=== PATIENT | female | born 1980 | race Caucasian/White ===

== ENCOUNTER 2019-11-16 16:54 | Outpatient (CLI) | payer OTHER, SELFPAY ==
--- NOTE | ~2019-11-16 | MM_ITS ---
EXAMINATION: MM screening javier BI w margoth HISTORY: Screening mammogram TECHNIQUE: Craniocaudal and mediolateral oblique 3-D tomosynthesis images were obtained and synthetic 2-D images were generated. CAD analysis was submitted and interpreted. COMPARISON: No prior mammogram is available for comparison at this institution. BREAST PARENCHYMAL COMPOSITION: There are scattered areas of fibroglandular density. FINDINGS: There is no evidence of suspicious mass, calcification, or architectural distortion to sugg est malignancy in either breast. There has been no suspicious interval change. IMPRESSION: 1. No mammographic evidence of malignancy. 2. Recommend routine screening mammography in one year. BI-RADS Category 1: Negative Reviewed, dictated and finalized at location A.
== END 2019-11-16 16:55 | disposition home or self-care (01) ==
LOC: ANHIMG 16:59
PROVIDERS: PCP Family Medicine
DX: Z12.31 Encounter for screening mammogram for malignant neoplasm of breast (principal)
CPT/HCPCS: 77063; 77067

== ENCOUNTER 2021-02-20 17:44 | Outpatient (CLI) | payer OTHER, SELFPAY ==
--- NOTE | ~2021-02-20 | MM_ITS ---
EXAMINATION: MM screening javier BI w margoth HISTORY: Screening mammogram TECHNIQUE: Craniocaudal and mediolateral oblique 3-D tomosynthesis images were obtained and synthetic 2-D images were generated. CAD analysis was submitted and interpreted. COMPARISON: 11/16/2019 bilateral digital screening mammogram BREAST PARENCHYMAL COMPOSITION: There are scattered areas of fibroglandular density. FINDINGS: There is no evidence of suspicious mass, calcification, or architectural distortion to sugg est malignancy in either breast. There has been no suspicious interval change. IMPRESSION: 1. No mammographic evidence of malignancy. 2. Recommend routine screening mammography in one year. BI-RADS Category 1: Negative Reviewed, dictated and finalized at location A.
== END 2021-02-20 17:45 | disposition home or self-care (01) ==
PROVIDERS: PCP Internal Medicine; Visit Provider Internal Medicine
DX: Z12.31 Encounter for screening mammogram for malignant neoplasm of breast (principal)
CPT/HCPCS: 77063; 77067

== ENCOUNTER → 2021-04-28 01:07 | Outpatient (CLI) | payer OTHER, SELFPAY ==
[2021-04-28 22:46] LABS: SARS-CoV-2 RNA PCR Negative
== END ==
PROVIDERS: PCP Internal Medicine; Visit Provider Clinical Nurse Specialist
DX: R68.89 Other general symptoms and signs (principal); Z20.822 Contact with and (suspected) exposure to COVID-19
CPT/HCPCS: C9803; U0003; U0005

== ENCOUNTER 2021-07-18 14:22 | Outpatient (CLI) | payer OTHER, SELFPAY ==
--- NOTE | ~2021-07-18 | XR_ITS ---
XR lumbar spine 2-3V DATE: 07/18/2021 14:49 INDICATION: Back pain TECHNIQUE: AP, lateral, coned lateral lumbosacral views COMPARISON: None FINDINGS: No fracture or bone destruction is evident. The included lower thoracic and lumbar pedicles are intact. Lumbar levels interspaces are well preserved. The sacroiliac joints are intact. IMPRESSION: Negative Reviewed, dictated and finalized at location A. CAPPER IMPRESSION: Negative
== END 2021-07-18 14:23 | disposition home or self-care (01) ==
LOC: ANHIMG 14:25
PROVIDERS: PCP Internal Medicine; Visit Provider Clinical Nurse Specialist
DX: M54.9 Dorsalgia, unspecified (principal)
CPT/HCPCS: 72100

== ENCOUNTER 2023-10-01 15:45 | Outpatient (CLI) | payer BC, SELFPAY ==
--- NOTE | ~2023-10-01 | MM_ITS ---
EXAMINATION: MM screening javier BI w margoth HISTORY: Screening mammogram, family history of breast cancer in her mother. TECHNIQUE: Craniocaudal and mediolateral oblique 3-D tomosynthesis images were obtained and synthetic 2-D images were generated. CAD analysis was submitted and interpreted. COMPARISON: 02/20/2021, 11/16/2019 BREAST PARENCHYMAL COMPOSITION:Not Dense. There are scattered areas of fibroglandular density. FINDINGS: No suspicious mass, calcification, or architectural distortion are identified in either river ast to suggest malignancy. There has been no suspicious interval change. IMPRESSION: No mammographic evidence of malignancy. Recommend routine screening mammography in one year. BI-RADS Category 1: Negative Reviewed, dictated and finalized at location . 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
== END 2023-10-01 15:46 | disposition home or self-care (01) ==
LOC: ANHIMG 15:50
PROVIDERS: PCP Internal Medicine
DX: Z12.31 Encounter for screening mammogram for malignant neoplasm of breast (principal)
CPT/HCPCS: 77063; 77067

== ENCOUNTER 2024-05-07 20:52 | Emergency (ER) | payer BC, SELFPAY ==
--- NOTE | ~2024-05-07 | CT_ITS ---
EXAMINATION: CT brain wo con DATE: 05/08/2024 02:51 INDICATION: Headache. TECHNIQUE: Computed tomography (CT) of the head was performed without intravenous contrast. The mA wa s adjusted according to patient size. Iterative reconstruction technique was employed. The dose-lengt h product was 605.33 mGy-cm. COMPARISON: Head CT 04/29/2009 FINDINGS: There is no intracranial hemorrhage, acute infarction, or abnormal intracranial mass lesion . The ventricles are normal in size. There is mucosal thickening in the paranasal sinuses. The mastoi d air cells are normal. IMPRESSION: 1. Normal brain. Reviewed, dictated and finalized at location A. IMPRESSION: 1. Normal brain.
[2024-05-07 21:14] VITALS: BP 117/80; PULSE 71; TEMP 36.6; O2SAT 99
[2024-05-08] MEDS: SODIUM CHLORIDE 0.9% IV 1,000 ML 999 ML IV CONT (02:01)
[2024-05-08] MEDS: ONDANSETRON INJ 4 MG/2 ML VIAL IV PUSH (02:02)
[2024-05-08] MEDS: diphenhydrAMINE HCl INJ 50 MG/ML VIAL 25 MG IV PUSH (02:03)
[2024-05-08] MEDS: METOCLOPRAMIDE HCL INJ 10 MG/2 ML VIAL IV PUSH (02:04)
[2024-05-08 02:06] VITALS: BP 118/81; PULSE 87; RESP 14; O2SAT 100
--- NOTE | 2024-05-08 02:56 | ED.HA ---
HPI - Headache General Chief Complaint: Headache Stated Complaint: migraine x 3 days, n/v Time Seen by Provider: 05/08/24 00:52 Source: patient Mode of arrival: ambulatory Limitations: no limitations History of Present Illness HPI Narrative: Patient is a 44-year-old female who presents to the ER with complaints of a headache that has been going on for the past three days. She reports this is the worst headache she has ever experienced in her life. Patient endorses nausea but she has not vomited since earlier in the day. She reports she has tried to relieve her headache with Ibuprofen, but it has not helped. Patient denies any pertinent medical history. She denies any one-sided weakness tingling or numbness, chest pain or shortness of breath. Related Data Home Medications Medication Instructions Recorded Confirmed loratadine 10 mg tablet (Claritin) 10 mg PO DAILY PRN 11/13/20 12/09/23 multivitamin with minerals 2 tablet PO DAILY 11/13/20 12/09/23 (Hair,Skin and Nails tablet) citalopram 10 mg tablet 15 mg PO DAILY 12/09/23 12/09/23 norethindrone 1 mg-ethinyl 1 tablet PO DAILY 12/09/23 12/09/23 estradiol 10 mcg (24)-iron 10 mcg(2) tablet (Lo Loestrin Fe) Allergies Allergy/AdvReac Type Severity Reaction Status Date / Time No Known Allergies Allergy Mild Verified 11/15/19 10:28 Review of Systems Review of Systems: All systems reviewed & are unremarkable except as noted in HPI and below PMFSH Past Medical History Medical History Allergies Anxiety Low back pain SVT (supraventricular tachycardia) Visual disturbance Surgical History Surgical History H/O section X2 Family History Family History Grandparent Family history of coronary artery disease Mother Family history of malignant neoplasm of breast in first degree relative Heart disease Father Hypertension Sibling Depression Anxiety Social History Social History Smoking status: Never smoker Alcohol intake: current Do You Feel Safe in your Home?: Yes Lack of Transportation: No Lack of Food: Never True Current Housing: I Have Housing Concerned About Future Housing: No Difficulty Paying Gas/Electric Bills: No Difficulty Paying for Meds: No Currently Unemployed: No Education: Associate Degree Difficulty w/ Childcare or Family Care: No Exam Narrative: GENERAL: Ill-appearing, well-nourished, non-toxic, in no acute distress. HEAD: Normocephalic, atraumatic. PERRLA RESPIRATORY: Airway patent, respirations nonlabored. Clear to auscultation bilaterally, no rales, rhonchi, wheezing. CARDIOVASCULAR: Regular rate and rhythm without murmurs, rubs, or gallops. Peripheral pulses 2+ and equal bilaterally. MUSCULOSKELETAL: Moves all extremities. Strength/ROM intact without gross deformities. SKIN: Warm, dry, normal color. No rashes. NEURO: A&O X3. Speech clear. Cranial nerves II-XII grossly intact. PSYCHIATRIC: Appropriate mood and affect. Normal interaction. Course Vital Signs Vital signs: Vital Signs Temperature 36.6 C 05/07/24 21:14 Pulse Rate 71 05/07/24 21:14 Blood Pressure 117/80 05/07/24 21:14 Pulse Oximetry 99 05/07/24 21:14 Temperature 36.6 C 05/07/24 21:14 Pulse Rate 87 05/08/24 02:06 Respiratory Rate 14 05/08/24 02:06 Blood Pressure 118/81 05/08/24 02:06 Pulse Oximetry 100 05/08/24 02:06 MDM - Headache MDM Narrative Medical decision making narrative: Patient is a 44-year-old female who presents to the ER with complaints of a R-sided headache that has been going on for the past three days. She reports this is the worst headache she has ever experienced in her life. Patient endorses nausea but she has not vomite
[2024-05-08] MEDS: KETOROLAC 15 MG/ML VIAL (*BKC) IV PUSH (03:35)
[2024-05-08 03:59] VITALS: BP 110/80; PULSE 78; RESP 17; O2SAT 100
== END 2024-05-08 04:01 | disposition home or self-care (01) ==
PROVIDERS: Emergency Provider Registered Nurse; PCP Internal Medicine
DX: G43.909 Migraine, unspecified, not intractable, without status migrainosus (principal); F41.9 Anxiety disorder, unspecified
CPT/HCPCS: 70450; 96361; 96374; 96375; 99284; J1200; J1885; J2405; J2765; J7030

== ENCOUNTER 2024-11-06 11:14 | Outpatient (CLI) | payer BC, SELFPAY ==
--- NOTE | ~2024-11-06 | MM_ITS ---
EXAMINATION: MM screening javier BI w margoth HISTORY: Screening mammogram, family history of breast cancer in her mother. TECHNIQUE: Craniocaudal and mediolateral oblique 3-D tomosynthesis images were obtained and synthetic 2-D images were generated. CAD analysis was submitted and interpreted. COMPARISON: 10/01/2023, 02/20/2021, 11/16/2019 BREAST PARENCHYMAL COMPOSITION:Not Dense. There are scattered areas of fibroglandular density. FINDINGS: Suspected subtle low-density mass at the upper, outer left breast. Stable parenchymal appea nic of the right breast. No suspicious microcalcifications. IMPRESSION: Suspected subtle low-density upper, outer left breast mass. Spot compression views and possibly ultr asound are recommended for further evaluation. BI-RADS Category 0: Incomplete: Needs additional imaging evaluation. Reviewed, dictated and finalized at [facility]. IMPRESSION: Suspected subtle low-density upper, outer left breast mass. Spot compression v iews and possibly ultrasound are recommended for further evaluation. BI-RADS Category 0: Incomplete: Needs additional imaging evaluation.
--- OUTSIDE RECORDS SUMMARY | 2024-11-06 11:19 | XMS_ITS | Patient Health Record ---
Author Organization [facility] Address [address] [place] [address] Care Team Providers Care Oil And Gas Principal Name Role Phone Bandar Maria Primary Care Provider Unavailab Stacey Ledesma Unavailable [phone] Anthony Rasheed Unavailable [phone] [employer], Provider Unavailable Unavailab anne-marie Allergies No Known Allergies Reason For Referral No Information Medications Medication SIG (Take, Route, Frequency, Duration) Notes Start Date End Date Status ZADITOR 0.025% 1 gtt in each affected eye every 8 hours Active CETIRIZINE 10 mg 1 tab(s) orally once a day Active Citalopram Hydrobromide 20 MG 1 tab(s) orally once a day Active Multivitamin - 1 tab(s) orally once a day Active Cetirizine HCl 10 MG 1 tab(s) orally onc e a day Active Zaditor 0.025% 1 GTT IN EACH AFFECTED EYE EVERY 8 HOURS *Please review and pick correct strength-formulati on from [employer] options. If intended option is not shown, discontinue and re-order from Quick Search* Active NASAL WASHES N/A DIRECTED INTRANASALLY NEEDED for 30 *Please review for potential replacement for e-prescription and drug interaction check* 10/27/2023 Active Fluticasone Propionate 50 MCG/ACT 1 spray(s) in each nostril twice a day for 30 days 10/27/2023 Active Lo Loestrin Fe 1 MG-10 MCG / 10 MCG 1 tab(s) orally once a day 10/13/2023 Active FLUTICASONE NASAL 50 mcg/inh 1 spray(s) in each nostril twice a day for 30 days 10/27/2023 Active CITALOPRAM 20 mg 1 tab(s) orally once a day Active LO LOESTRIN FE with iron biphasic 10 mcg-1 mg 1 tab(s) orally once a day 10/13/2023 Active MULTIVITAMIN Multiple Vitamins 1 tab(s) orally once a day Active Immunizations Vaccine Route Administration Date Status Comme nts NOC PedvaxHIB IM Intramuscular 11/11/2023 Administered NOC Pneumovax 23 IM Intramuscular 11/11/2023 Administered Social History Tobacco Use: Social History Observation Description Date Details (start date - stop date) Never Smoker NA - NA Smoking Smart Form: Question Answer Notes Are you a: never smoker Problems Problem Type SNOMED Code ICD Code Onset Dates Problem Status W/U Status Risk Notes Problem Vitamin D deficiency (14372644) Vitamin D deficiency, unspecified (E55.9) Active confirmed Problem Chronic allergic conjunctivitis (27014879) Other chronic allergic conjunctivitis (H10.45) Active confirmed Problem Allergic rhinitis caused by pollen (disorder) (34671875) Allergic rhinitis due to pollen (J30.1) Active confirmed Problem Allergic rhinitis (06386208) Other allergic rhinitis (J30.89) Active confirmed Problem Chronic sinusitis (60504155) Chronic sinusitis, unspecified (J32.9) Active confirmed Problem Allergic rhinitis caused by animal hair and dander (639470493612650) Allergic rhinitis due to animal (cat) (dog) hair and dander (J30.81) Active confirmed Problem Chronic sinusitis (54340508) Other chronic sinusitis (J32.8) Active confirmed Encounters Encounter Location Date Provider Diagnosis [facility] [place] [address] [place] [address] 02/14/2024 [facility] [address] [place] [address] 11/11/2023 Anthony Rasheed Encounter for immunization Z23 ; Encounter for antibody response examination Z01.84 and Other chronic sinusitis J32.8 Assessments Encounter Date Diagnosis (ICD Code) Assessment Notes Treatment Notes Treatment Clinical Notes Section Notes 11/11/2023 Encounter for immunization (ICD-10 - Z23) 11/11/2023 Encounter for antibody response examination (ICD-10 - Z01.84) 11/11/2023 Other chronic sinusitis (ICD-10 - J32.8) Plan Of Treatment Pending Test Test Name Order Date STREPTOCOCCUS PNEUMONIAE IGG AB (23 SERO TYPES) 10/27/2023 HAEMOPHILUS INFLUENZAE B ANTIBODY, IGG 0 10/27/2023 Insurance Providers Payer Name Payer Address Payer Phone Subscriber Number Group Number Insured Name Patient Relationship to Insured Coverage Start Date Coverage End Date [facility] [id number] [place] [address] [id number] Roseanna Benoit Self - patient is the insured 3 Medical (General) History Medical History History ICD Code Anxiety disorder Depression, unspecified F32.A depression Surgical History Surgery Date(Month/Year) C section 04/21/2009 c section 06/19/2012 heart ablation 2007 heart ablation 2009
--- OUTSIDE RECORDS SUMMARY | 2024-11-06 11:19 | XMS_ITS | Referral Summary ---
Author Organization [facility] Address [address] [place] [address] Care Team Providers Care School Operations Manager Name Role Phone Bandar Maria DO Primary Care Provider [phone] Allergies No known active allergies Medications fluocinonide (LIDEX) 0.05 % ointment Apply twice daily to Rash on Hands and Arms only when present. 8 Active LORazepam (ATIVAN) 2 mg tablet PLEASE SEE ATTACHED FOR DETAILED DIRECTIONS 1 Active traMADoL (ULTRAM) 50 mg tablet TAKE 1 2 TABLETS BY MOUTH EVERY 6 HOURS NEEDED FOR POST OPERATVIE PAIN 1 Active SUMAtriptan (IMITREX) 50 mg tablet 1 TAB AT ONSET OF HEADACHE MAY REPEAT ONCE AFTER AT LEAST 2 HOUR IF NO RELIEF-MAX PER 24 HOUR: 4 TAB 4 Active topiramate (TOPAMAX) 25 mg tablet Take 1 tablet (25 mg total) by mouth 2 (two) times a day 4 Active vitamin B complex no.2-gdupk-R-bi otin 1-60-300 mg-mg-mcg tabletIndicatio ns:Vitamin Deficiency Prevention 1 tablet Active progesterone (PROMETRIUM) 100 mg capsule Take 110 mg by mouth daily Active testosterone (TESTOPEL) 75 mg pellet Inject under the skin once Active propranoloL (INDERAL) 80 mg tablet Take 1 tablet (80 mg total) by mouth every 12 (twelve) hours 4 Active citalopram (CeleXA) 20 mg tabletIndicatio ns:Anxiety with Depression Take 1 tablet (20 mg total) by mouth daily 90 tablet 3 4 Active Active Problems Problem Noted Date Diagnosed Date Anxiety 12/25/2016 Overview (10/20/2019): Anxiety Palpitations 12/25/2016 SVT (supraventricular tachycardia) 12/25/2016 Resolved Problems Problem Noted Date Diagnosed Date Resolved Date Encounter for supervision of normal 10/20/2019 Overview (10/20/2019): Supervision of normal - (Added by TW Conv) Encounter for surveillance o f contraceptive pills 10/20/2019 Overview (10/20/2019): Encounter for repeat prescription of oral contraceptives - (Added by TW Conv) Dysuria 10/20/2019 Overview (10/20/2019): Dysuria - (Added by TW Conv) Immunizations Immunization Administration Dates Next Due Influenza, Quadrivalent, Leila l Culture-based MDCK, Antibiotic Free, Intramuscular 05/27/2019 Influenza, Quadrivalent, Split, Intramuscular Influenza, Quadrivalent, Spl it, Preservative Free, Intramuscular 06/04/2018,06/05/2017 Social History Tobacco Use Types Packs/Day Years Used Date Smoking Tobacco: Never Smokeless Tobacco: Never Alcohol Use Standard Drinks/Week Comments Yes 0 (1 standard drink = 0.6 oz pur e alcohol) 1x/ month AUDIT-C Answer Date Recorded Q1: How often do you have a drink containing alc ohol? 2-4 times a month 08/02/2024 Q2: How many drinks containi ng alcohol do you have on a typical day when you are drinking? 1 or 2 08/02/2024 Frequency of Binge Drinking Not on file 10/2023 Exercise Vital Sign Answer Date Recorde d Days of Exercise per Week 0 days 2019 Minutes of Exercise per Session 0 min 10/20/2019 Comments No Sex and Gender Information Value Date Recorded Sex Assigned at Not on file Legal Sex Female 9:40 PM HOG ROOM SUPERVISOR Gender Identity Not on file Sexual Orientation Not on file Last Filed Vital Signs Vital Sign Reading Time Taken Comments Blood Pressure 114/73 08/02/2024 3:36 PM HOG ROOM SUPERVISOR Pulse 70 02/23/2024 5:47 PM CDT Temperature 36.7 C (98 F) 02/23/2024 5:47 PM CDT Respiratory Rate 20 02/23/2024 5:47 PM CDT Oxygen Saturation 100% 02/23/2024 5:47 PM CDT Inhaled Oxygen Concentration - - Weight 74.3 kg (163 lb 11.2 oz) 08/02/2024 3:36 PM HOG ROOM SUPERVISOR Height 166.4 cm (5' 5.5 ) 08/02/2024 3:36 PM HOG ROOM SUPERVISOR Body Mass Index 26.83 08/02/2024 3:36 PM HOG ROOM SUPERVISOR Plan of Treatment Not on file Procedures Procedure Name Priority Date/Time Associated Diagnosis Comments SCREENING MAMMOGRAM BILATERAL W GIL Schedule Routine, Read Routine (OP Routine) 02/26/2021 11:35 AM CDT Encounter for screening mammogram for malignant neoplasm of breast Family history of breast cancer THINPREP IMAGING PAP AND HPV MRNA E6/E7 REFLEX HPV 16,18/45 Routine 10/20/2019 4:47 PM HOG ROOM SUPERVISOR from Last 3 Months or Most Recently Relevant to Health Maintenance Results * SCREENING MAMMOGRAM BILATERAL W GIL (02/26/2021 11:35 AM CDT) Anatomical Region Laterality Modality Breast Bilateral Mammography Barbara Quintero WIDE AREA NETWORK ADMINISTRATOR IMG MAMMO PROCEDURES Fi nal Result * ThinPrep Imaging Pap and HPV mRNA E6/E7 Reflex HPV 16,18/45 (10/20/2019 4:47 PM HOG ROOM SUPERVISOR) CLINICAL INFORMATION: Information not provided SCREENING [facility] - LMP [id number] [facility] - Previous Pap INFORMATION NOT PROVIDED [facility] - Prev. Bx INFORMATION NOT PROVIDED [facility] - SOURCE: Cervix, Endocervix [facility] - Pap, specimen adequacy Satisfactory for evaluation. Endocervical/gonzales sformation zone component absent. [facility] - HPV interp Negative for intraepithelial lesion or malignancy. [facility] - COMMENTS This Pap test has been evaluated with computer assisted technology. [facility] - Microcomputer Support Specialist BEF, CT(ASCP) CT screening location: [place] [address] [place] [address] [facility] Review administration professional MEF, CT(ASCP) CT screening location: [place] [address] [address] [address] [facility] Comment [facility] Comment: EXPLANATORY NOTE: The Pap is a screening test for cervical cancer. It is not a diagnostic test and is subject to false negative and false positive results. It is most reliable when a satisfactory sample, regularly obtained, is submitted with relevant clinical findings and history, and when the Pap result is evaluated along with historic and current clinical information. Human papillomavirus RNA, High Risk E6/E7 Not Detected Not Detected [facility] [place] Comment: This test was performed using the APTIMA HPV Assay ([employer] This assay detects E6/E7 viral messenger RNA (mRNA) from 14 high-risk HPV types (16,18,31,33,35,39,45,51,52,56,58,59,66,68). The analytical performance characteristics of this assay have been determined by [employer]. The modifications have not been cleared or approved by the FDA. This assay has been validated pursuant to the CLIA regulations and is used for clinical purposes. 10/20/2019 4:47 PM HOG ROOM SUPERVISOR 10/21/2019 12:26 PM HOG ROOM SUPERVISOR Narrative [facility] - 10/25/2019 12:57 PM HOG ROOM SUPERVISOR FASTING: UNKNOWN Resulting Agency Comment Performing Organization Information: Site ID: [id number] Name: [facility] Address: [address] [address] Director: Sagar Calvert D.O., MPH Site ID: [id number] Name: [facility] Address: [address] [address] Director: Brett Bowen Barbara Quintero NP LAB CYTOLOGY ORDERABLES Final Result [facility] - Mookie Levi [facility] NATALIA Dave from Last 3 Months or Most Recently Relevant to Health Maintenance Insurance [employer] [place] [employer] [place] Care Teams School Operations Manager Relationship Specialty Start Date End Date Bandar Maria DO PCP - General Internal Medicine 02/23/24
--- OUTSIDE RECORDS SUMMARY | 2024-11-06 11:19 | XMS_ITS | Clinical Summary ---
Author Organization [facility] Address [address] [place] [address] Care Team Providers Care Debridging Machine Operator Name Role Phone Bandar Maria DO Primary Care Provider [phone] Allergies No known active allergies Medications fluocinonide [...] a day 4 Active vitamin B complex no.9-[id number]-bi otin 1-60-300 mg-mg-mcg tabletIndicatio ns:Vitamin Deficiency Prevention [...] Quadrivalent, Spl it, Preservative Free, Intramuscular 06/04/2018,06/05/2017 Surgical History Surgery Date Site/Laterality Comments [place] DELIVERY ONLY Section - (Added by TW Conv) ABLATION Catheter Ablation - 2006, 2008 (Added by TW Conv) LIPOSUCTION Medical History Medical History Date Comments Encounter for supervision of normal Supervision of normal pregna ncy - (Added by TW Conv) Dysuria Dysuria - (Added by TW Conv) Encounter for surveillance o f contraceptive pills Encounter for repeat prescri ption of oral contraceptives - (Added by TW Conv) Personal history of other sp ecified conditions History of fatigue - (Added by TW Conv) Migraine Premenopausal patient Family History Medical History Relation Name Comments No Known Problems Father Breast cancer Mother Breast Cancer - Diagnosed at age 40 (Added by TW Conv) Hypertension Paternal Grandmother Hyperte nsion - (Added by TW Conv) Stroke Paternal Grandmother Stroke Syndrome - (Added by TW Conv) Relation Name Status Comments Father Mother Paternal Grandmother Social History Tobacco Use Types Packs/Day Years [...] on file Legal Sex Female 9:40 PM DECKHAND OYSTER DREDGE Gender Identity Not on file Sexual Orientation Not on file Obstetrics History Para Term AB IAB SAB Ectopic Multiple Livin g Live Births 2 2 2 2 2 Date Outcome GA Total Labor Labor/2nd/3rd Weight Sex Type Anes PTL Skylar A1 A5 Name Clin 2008 Term M CS-LT ranv Living Complications:Other (Comment ),Autism disorder 2011 Term M CS-LT ranv Living Last Filed Vital Signs Vital Sign Reading Time Taken Comments Blood Pressure 114/73 08/02/2024 3:36 PM DECKHAND OYSTER DREDGE Pulse 70 02/23/2024 5:47 PM CDT Temperature 36.7 C (98 F) 02/23/2024 5:47 PM CDT Respiratory Rate 20 02/23/2024 5:47 PM CDT Oxygen Saturation 100% 02/23/2024 5:47 PM CDT Inhaled Oxygen Concentration - - Weight 74.3 kg (163 lb 11.2 oz) 08/02/2024 3:36 PM DECKHAND OYSTER DREDGE Height 166.4 cm (5' 5.5 ) 08/02/2024 3:36 PM DECKHAND OYSTER DREDGE Body Mass Index 26.83 08/02/2024 3:36 PM DECKHAND OYSTER DREDGE Plan of Treatment Health Maintenance Due Date Last Done Comments Depression Screening 1982 Hepatitis C Screening 1982 DTaP/Tdap/Td Vaccine (1 - Tdap) 1993 Varicella Vaccines (1 of 2 - 13+ 2-dose series) 1995 Hepatitis B Screening 2000 Cervical Cancer Screening 10/20/2020 10/20/2019, 09/2014 Breast Cancer Screening-Mammogram 02/26/2022 02/26/2021, 11/17/2019 Influenza Vaccine (#1) 2024 9, 06/04/2018, 06/05/2017, Additional history exists Regular Well Visit/Exam 18-64 08/02/2025 08/02/2024, 06/05/2023, 01/08/2022, Additional history exists HPV Vaccines Aged Out No longer eligi ble based on patient's age to complete this topic Pneumococcal vaccine <65 Aged Out No longer eligible based on patient's age to complete this topic Procedures Procedure Name Priority Date/Time Associated Diagnosis Comments SCREENING MAMMOGRAM BILATERAL W GIL Schedule Routine, Read Routine (OP Routine) 02/26/2021 11:35 AM CDT Encounter for screening mammogram for malignant neoplasm of breast Family history of breast cancer THINPREP IMAGING PAP AND HPV MRNA E6/E7 REFLEX HPV 16,18/45 Routine 10/20/2019 4:47 PM DECKHAND OYSTER DREDGE from Last 3 Months or Most Recently Relevant to Health Maintenance Results * SCREENING MAMMOGRAM BILATERAL W GIL (02/26/2021 11:35 AM CDT) Anatomical Region Laterality Modality Breast Bilateral Mammography Barbara Quintero NP IM MAMMO PROCEDURES Fi nal Result * ThinPrep Imaging Pap and HPV mRNA E6/E7 Reflex HPV 16,18/45 (10/20/2019 4:47 PM DECKHAND OYSTER DREDGE) CLINICAL INFORMATION: Information not provided SCRE[facility]ING [facility] - LMP [id number] [facility] - Previous Pap INFORMATION NOT PROVIDED [facility] - Prev. Bx INFORMATION NOT PROVIDED [facility] - SOURCE: Cervix, Endocervix [facility] - Pap, specimen adequacy Satisfactory for evaluation. Endocervical/gonzales sformation zone component absent. [facility] - SL HPV interp Negative for intraepithelial lesion or malignancy. [facility] - COMMENTS This Pap test has been evaluated with computer assisted technology. [facility] - Necktie Maker BEF, CT(ASCP) CT screening location: [place] [address] [place] [address] [facility] - Review support clerk MEF, CT(ASCP) CT screening location: [place] [address] [address] [address] [facility] Comment [facility] Comment: EXPLANATORY NOTE: The Pap is [...] High Risk E6/E7 Not Detected Not Detected [facility] - [place] Comment: This test was performed using the APTIMA HPV Assay ([employer] This assay detects E6/E7 viral messenger RNA (mRNA) from 14 high-risk HPV types (16,18,31,33,35,39,45,51,52,56,58,59,66,68). The analytical performance characteristics of this assay have been determined by [facility]. The modifications have not been cleared or approved by the FDA. This assay has been validated pursuant to the CLIA regulations and is used for clinical purposes. 10/20/2019 4:4 7 PM DECKHAND OYSTER DREDGE 10/21/2019 12:26 PM DECKHAND OYSTER DREDGE Narrative [facility] - 10/25/2019 12:57 PM DECKHAND OYSTER DREDGE FASTING: UNKNOWN Resulting Agency Comment Performing Organization Information: Site ID: [place] Name: [facility] Address: [address] [place] [address] Director: Sagar Calvert D.O., MPH Site ID: [place] [facility] Address: [address] [place] [address] Director: Brett Bowen Barbara Quintero NP LAB CYTOLOGY ORDERABLES Final Result [facility] - [place] [facility] [place] Dave from Last 3 Months or Most Recently Relevant to Health Maintenance Insurance [facility] Care Teams Debridging Machine Operator Relationship Specialty Start Date End Date Bandar Maria DO PCP - General Internal Medicine 02/23/24
--- OUTSIDE RECORDS SUMMARY | 2024-11-06 11:19 | XMS_ITS ---
Author Organization [facility] Address [address] [place] [address] Care Team Providers Care Fur Dry Cleaner Name Role Phone AjjeremyBandar Primary Care Provider Unavailab le Stacey Canchola Unavailable [phone] [facility], Provider Unavailable Unavailab le [facility] VISIT [facility] Encounter Medications Medication SIG (Take, Route, Frequency, Duration) Notes Start Date End Date Status Citalopram Hydrobromide 20 MG 1 tab(s) orally once a day Active Multivitamin - 1 tab(s) orally once a day Active NASAL WASHES N/A DIRECTED INTRANASALLY NEEDED for 30 *Please review for potential replacement for e-prescription and drug interaction check* 10/27/2023 Active Fluticasone Propionate 50 MCG/ACT 1 spray(s) in each nostril twice a day for 30 days 10/27/2023 Active Lo Loestrin Fe 1 MG-10 MCG / 10 MCG 1 tab(s) orally once a day 10/13/2023 Active Cetirizine HCl 10 MG 1 tab(s) orally onc e a day Active Zaditor 0.025% 1 GTT IN EACH AFFECTED EYE EVERY 8 HOURS *Please review and pick correct strength-[facility]ulati [facility] options. If intended option is not shown, discontinue and re-order from Quick Search* Active Encounters Encounter Location Date Provider Diagnosis [facility] [address] [address] 02/14/2024 Provider ZZ-Migration Plan Of Treatment No Information Progress Notes * Roseanna HERNÁNDEZ LDOB:[birth year] (44 yo F)Acc No.[id number]:02/14/2024 Patient: Roseanna AGUILLON Provider: Yaron Li :1980 A ge:43 Y S ex:Female Date:02/14/2024 Address:[facility] [address] [id number] Pcp:Bandar Maria Subjective: * Chief Complaints: * 1 . Multum To [facility] Conversion Encounter. * Medical History: * Medications: T aking Zaditor 0.025% SOLUTION 1 GTT IN EACH AFFECTED EYE EVERY 8 HOURS , Notes to Pharmacist: *Please review and pick correct strength-formulation from [facility] options. If intended option is not shown, discontinue and re-order from Quick Search*, Taking Cetirizine HCl 10 MG Tablet 1 tab(s) orally once a day , Taking Multivitamin - Tablet 1 tab(s) orally once a day , Taking Citalopram Hydrobromide 20 MG Tablet 1 tab(s) orally once a day , Taking Lo Loestrin Fe 1 MG-10 MCG / 10 MCG Tablet 1 tab(s) orally once a day , Taking Fluticasone Propionate 50 MCG/ACT Suspension 1 spray(s) in each nostril twice a day , Taking NASAL WASHES N/A 1 QUART OF STERILIZED TAP WATER OR DISTILLED WATER, 1 TSP NACL, 1 PINCH OF BAKING SODA DIRECTED INTRANASALLY NEEDED , Notes to Pharmacist: *Please review for potential replacement for e-prescription and drug interaction check* Objective: * Vitals: Assessment: Plan: * Treatment: * Billing Information: * Visit Code: * Procedure Codes: * Electronic signature of Prov ider ZZ-Migration on 11/06/2024 at 11:19 AM LIGHTING FIXTURES DECORATOR Sign off status: Pending * Provider: Yaron Li Date: 02/14/2024 Generated for Carlo cruz/Osbaldo/Taraitting on: 0 11/06/2024 11:19 AM LIGHTING FIXTURES DECORATOR
--- OUTSIDE RECORDS SUMMARY | 2024-11-06 11:19 | XMS_ITS | Clinical Summary ---
Author Organization [facility] Address [address] [place] [address] Care Team Providers Care Golf Course Equipment Operator Name Role Phone Unavailable Primary Care Provider Unavailabl e Source Comments [facility],non-owned Affiliates and Associated Physician Practices is amultiple site organization consisting of ambulatory clinics and hospital sitesin [place], [place], [place] and [place]. This disclosure is being madepursuant to the Care Everywhere program and may not contain all information available regarding this patient. Last updated 18.[facility] Allergies No known active allergies Medications * Be aware that medications may not be up to date on this document. Alwaysverify current medications with the patient. Medication Sig Dispensed Refills Start Date End Date Status citalopram (CELEXA) 10 MG tablet Take 10 mg by mouth once daily 12/24/2016 Active Active Problems Problem Noted Date Diagnosed Date Anxiety 12/25/2016 Palpitations 12/25/2016 SVT (supraventricular tachycardia) 12/25/2016 Social History Tobacco Use Types Packs/Day Years Used Date Smoking Tobacco: Never Sex and Gender Information Value Date Recorded Sex Assigned at Not on file Gender Identity Not on file Sexual Orientation Not on file Last Filed Vital Signs Vital Sign Reading Time Taken Comments Blood Pressure 138/90 12/25/2016 1:23 PM CDT Pulse 68 12/25/2016 1:23 PM CDT Temperature - - Respiratory Rate - - Oxygen Saturation - - Inhaled Oxygen Concentration - - Weight 65 kg (143 lb 3.2 oz) 12/25/2016 1:23 PM CDT Height 170.2 cm (5' 7 ) 12/25/2016 1:23 PM CDT Body Mass Index 22.43 12/25/2016 1:23 PM CDT Plan of Treatment Health Maintenance Due Date Last Done Comments LIPID TESTING 1982 MAMMOGRAM 1982 PAP SMEAR 1982 HIV SCREENING 1997 HEPATITIS C SCREENING 03/31/2000 DTAP/TDAP/TD VACCINES (1 - Tdap) 2001 HEPATITIS B VACCINE (1 of 3 - 19+ 3-dose series) 2001 COVID-19 VACCINE (1 - 2023-2 5 season) 2024 INFLUENZA VACCINE (#1) 2024 DEPRESSION SCREENING 09/01/2024 ZOSTER VACCINE (1 of 2) 2032 HIB VACCINE Aged Out No longer eligi ble based on patient's age to complete this topic HPV VACCINE Aged Out No longer eligi ble based on patient's age to complete this topic MENINGOCOCCAL (Group B) VACCINE Aged Out No longer eligible based on patient's age to complete this topic MENINGOCOCCAL VACCINE Aged Out No billy dianna eligible based on patient's age to complete this topic PNEUMOCOCCAL VACCINE Aged Out No long er eligible based on patient's age to complete this topic
--- OUTSIDE RECORDS SUMMARY | 2024-11-06 11:20 | XMS_ITS | Referral Summary ---
Author Organization [facility] Address [address] [place] [address] Care Team Providers Care Horizontal Resaw Operator Name Role Phone Unavailable Primary Care Provider Unavailabl e Source Comments [facility],non-owned Affiliates and Associated Physician Practices is amultiple site organization consisting of ambulatory clinics and hospital sitesin [place], [place], [place] and [place]. This disclosure is being madepursuant to the Care Everywhere program and may not contain all information available regarding this patient. Last updated 18.[facility] Allergies No known active allergies Medications * [...] 12/25/2016 1:23 PM CDT Plan of Treatment Not on file
--- OUTSIDE RECORDS SUMMARY | 2024-11-06 11:20 | XMS_ITS ---
Author Organization [facility] Address [address] [place] [address] Care Team Providers Care Rental Sales Representative Name Role Phone Bandar Maria Primary Care Provider Unavailab Stacey Ledesma Unavailable [phone] Anthony Rasheed Unavailable [phone] REASON FOR VISIT Needs evaluation fo pre-vaccine health questionaire and medication review Medications Medication SIG (Take, Route, Frequency, Duration) Notes Start Date End Date Status FLUTICASONE NASAL 50 mcg/inh 1 spray(s) in each nostril twice a day for 30 days 10/27/2023 Active NASAL WASHES N/A as directed intranas ally as needed for 30 10/27/2023 Active CITALOPRAM 20 mg 1 tab(s) orally once a day Active LO LOESTRIN FE with iron biphasic 10 mcg-1 mg 1 tab(s) orally once a day 10/13/2023 Active MULTIVITAMIN Multiple Vitamins 1 tab(s) orally once a day A ctive ZADITOR 0.025% 1 gtt in each affect ed eye every 8 hours Active CETIRIZINE 10 mg 1 tab(s) orally once a day Active Immunizations Vaccine Route Administration Date Status Comme nts NOC Pneumovax 23 IM Intramuscular 11/11/2023 Administered NOC PedvaxHIB IM Intramuscular 11/11/2023 Administered Problems Problem Type SNOMED Code ICD Code Onset Dates Problem Status W/U Status Risk Notes Problem Chronic sinusitis (38725360) Other chronic sinusitis (J32.8) Active confirmed Encounters Encounter Location Date Provider Diagnosis [facility] [address] [place] [address] 11/11/2023 Anthony Rasheed Encounter for immu nization Z23 ; Encounter for antibody response examination Z01.84 and Other chronic sinusitis J32.8 Assessments Encounter Date Diagnosis (ICD Code) Assessment Notes Treatment Notes Treatment Clinical Notes Section Notes 11/11/2023 Encounter for immunization (ICD-10 - Z23) 11/11/2023 Encounter for antibody response examination (ICD-10 - Z01.84) 11/11/2023 Other chronic sinusitis (ICD-10 - J32.8) Plan Of Treatment Next Appt Details Follow Up: as scheduled, [place] son: Progress Notes * Roseanna HERNÁNDEZ LDOB:[birth year] (43 yo F)Acc No.[id number]:11/11/2023 Pneumovax Patient: Roseanna AGUILLON Provider: Yaron Rasheed MD :1980 A ge:43 Y S ex:Female Date:11/11/2023 Address:[facility] [address] [id number] Pcp:Bandar Maria Subjective: * Chief Complaints: * N eeds evaluation fo pre-vaccine health questionaire and medication review * Medical History: * Surgical History: * Hospitalization/Major Diagno stic Procedure: * Medications: T akingZaditor 0.025% solution 1 gtt in each affected eye every 8 hours cetirizine 10 mg tablet 1 tab(s) orally once a day multivitamin Multiple Vitamins tablet 1 tab(s) orally once a day citalopram 20 mg tablet 1 tab(s) orally once a day Lo Loestrin Fe with iron biphasic 10 mcg-1 mg tablet 1 tab(s) orally once a day fluticasone nasal 50 mcg/inh spray 1 spray(s) in each nostril twice a day Nasal Washes N/A 1 quart of sterilized tap water or distilled water, 1 tsp NaCl, 1 pinch of baking soda as directed intranasally as needed Taking Zaditor 0.025% solution 1 gtt in each affected eye every 8 hours Taking cetirizine 10 mg tablet 1 tab(s) orally once a day Taking multivitamin Multiple Vitamins tablet 1 tab(s) orally once a day Taking citalopram 20 mg tablet 1 tab(s) orally once a day Taking Lo Loestrin Fe with iron biphasic 10 mcg-1 mg tablet 1 tab(s) orally once a day Taking fluticasone nasal 50 mcg/inh spray 1 spray(s) in each nostril twice a day Taking Nasal Washes N/A 1 quart of sterilized tap water or distilled water, 1 tsp NaCl, 1 pinch of baking soda as directed intranasally as needed Objective: Assessment: * Assessment: 1. E ncounter for immunization - Z23 (Primary) 2 . E ncounter for antibody response examination - Z01.84 3 . O ther chronic sinusitis - J32.8 Plan: * Treatment: * Immunizations: NOC Pneumovax 23 : 0.5 (Route: Intramuscular) given by Siri Stevens on Right Deltoid ? NOC PedvaxHIB : 0.5 mL (Route: Intramuscular) given by Siri Stevens on Left Deltoid * Procedure Codes: 9 0471 Single or [id number] NOC Pneumovax [id number] [id number] Ea addt'l single or combo * Follow Up: a s scheduled * Billing Information: * Visit Code: * Procedure Codes: 43797 Immunization Administration (one vaccine). 01841 NOC Pneumovax 23. 80214 NOC PedvaxHIB. 45956 Immunization Administration (each additional vaccine). * Sign off status: Completed true * Provider: Yaron Rasheed MD Date: 0 11/11/2023 Generated for Carlo cruz/Osbaldo/Larissa on: 0 11/06/2024 11:19 AM REGIONAL SALES TRAINER
--- OUTSIDE RECORDS SUMMARY | 2024-11-06 11:20 | XMS_ITS ---
Author Organization [facility] Address [address] [place] [address] Care Team Providers Care Learning Support Aide Name Role Phone Bandar Maria Primary Care Provider Unavailab Stacey Ledesma Unavailable [phone] REASON FOR VISIT ARC follow-up Encounters Encounter Location Date Provider Diagnosis [facility] [address] [place] [address] 12/15/2023 Stacey Canchola Plan Of Treatment No Information Progress Notes * Roseanna HERNNÁDEZ LDOB:[birth year] (44 yo F)Acc No.[id number]:12/15/2023 Progress Notes Patient: Roseanna AGUILLON Provider: MALATHI Mcdonald :1980 A ge:43 Y S ex:Female Date:12/15/2023 [address] [id number] Pcp:Bandar Maria Subjective: * Chief Complaints: * 1 . ARC follow-up. * Medical History: Objective: * Vitals: Assessment: Plan: * Treatment: * Billing Information: * Visit Code: * Procedure Codes: * Electronic signature of Stacey Canchola DNP, FNP-C on 11/06/2024 at 11:19 AM COTTON DISPATCHER Sign off status: Pending * Provider: MALATHI Mcdonald Date: 0 12/15/2023 Generated for Carlo cruz/Osbaldo/Larissa on: 0 11/06/2024 11:19 AM COTTON DISPATCHER
--- OUTSIDE RECORDS SUMMARY | 2024-11-06 11:20 | XMS_ITS | Patient Health Summary ---
Author Organization [email or web address] Address [address] [place] [address] Care Team Providers Care Tuber Helper Name Role Phone Unavailable Primary Care Provider Unavailabl e Note from [facility],non-owned Affiliates and Associated Physician Practices is amultiple site organization consisting of ambulatory clinics and hospital sitesin [place], [place], [place] and [place]. This disclosure is being madepursuant to the Care Everywhere program and may not contain all information available regarding this patient. Last updated 18.[email or web address] Allergies No known active allergies Medications * Be aware that medications may not be up to date on this document. Alwaysverify current medications with the patient. * citalopram (CELEXA) 10 MG tablet(Started 12/24/2016) Take 10 mg by mouth once daily Active Problems Problem Noted Date Diagnosed Date [...] Mass Index 22.43 12/25/2016 1:23 PM CDT Procedures * HOLTER MONITOR(Performed 02/07/2017) Performed for Palpitations, SVT (supraventricular tachycardia) * BASIC METABOLIC PANEL (CALCIUM TOTAL)(Performed 01/20/2017) * EKG 12-LEAD(Performed 12/25/2016) Performed for SVT (supraventricular tachycardia) * HEMOGLOBIN A1C(Performed 11/25/2016) * TSH (EXTERNAL RESULT ENTRY)(Performed 10/01/2016) * EP STUDY(Performed 09/29/2009) * ECHO COMPLETE(Performed 11/26/2007) Results * HOLTER ORDER (02/07/2017 3:46 PM CDT) Narrative Melissa Cowart - 02/07/2017 3:46 PM CDT Melissa Cowart 02/07/2017 3:46 PM See scan. Jose Fontanez MD CARDIAC SERVICES ORD ERABLES * BASIC METABOLIC PANEL (CALCIUM TOTAL) (01/20/2017) Blood BLOOD SPECIMEN / Unknown Narrative Ji Dillon - 01/20/2017 Was made in error. Please disregard. Mary Wilkes MD LAB - CHEMISTRY O RDERABLES * EKG 12-LEAD (12/25/2016 2:26 PM CDT) Narrative Jacy Arana - 12/25/2016 2:26 PM CDT Jacy Arana 12/25/2016 2:26 PM See scan Jose Fontanez MD ECG ORDERABLES * HEMOGLOBIN A1C (11/25/2016) Whole Blood BLOOD SPECIMEN WITH EDTA / Unknown Narrative Ji Dillon - 11/25/2016 Was made in error. Please disregard. Mary Wilkes MD LAB - CHEMISTRY O RDERABLES * TSH (EXTERNAL RESULT ENTRY) (10/01/2016) TSH (EXTERNAL RESULT) uIU/mL Blood BLOOD SPECIMEN / Unknown Narrative Ji Dillon - 10/01/2016 Was made in error. Please disregard. Mary Wilkes MD LAB - CHEMISTRY O RDERABLES * EP STUDY (09/29/2009) Historical Provider ELECTROPHYS RADIA NT * ECHO COMPLETE (11/26/2007) Floresita Crowe MD ECHO ORDERABLES
== END 2024-11-06 11:15 | disposition home or self-care (01) ==
LOC: ANHIMG 11:17
PROVIDERS: PCP Internal Medicine
DX: Z12.31 Encounter for screening mammogram for malignant neoplasm of breast (principal); R92.8 Other abnormal and inconclusive findings on diagnostic imaging of breast
CPT/HCPCS: 77063; 77067

== ENCOUNTER 2024-12-21 11:17 | Outpatient (CLI) | payer BC, SELFPAY ==
--- NOTE | ~2024-12-21 | MMUS_ITS ---
EXAMINATION: MM diagnostic javier LT w margoth, US breast LT limited HISTORY: Follow-up left breast asymmetry TECHNIQUE: Additional 3-D tomosynthesis images of the left breast were performed and synthetic 2-D im ages were generated. CAD analysis was submitted and interpreted. High resolution Limited left breast ultrasound was performed. COMPARISON: Comparison to multiple prior studies sequentially, with oldest reviewed study dated 02/20. BREAST PARENCHYMAL COMPOSITION: Not dense: There are scattered areas of fibroglandular density. FINDINGS: MAMMOGRAPHIC FINDINGS: There are no suspicious masses, calcifications or architectural distortion in the left breast to sugg est malignancy. ULTRASOUND: Limited left breast ultrasound: At 3:00, 6 cm from the nipple there is a 6 mm cyst. No suspicious son ographic abnormalities to suggest malignancy. IMPRESSION: 1. No evidence for malignancy in the left breast. Benign findings. 2. Routine yearly screening mammogram and regular clinical breast examination are recommended. BI-RADS Category 2: Benign finding(s). Reviewed, dictated and finalized at location A. IMPRESSION: 1. No evidence for malignancy in the left breast. Benign findings. 2. Routine yearly screening mammogram and regular clinical breast examination a re recommended. BI-RADS Category 2: Benign finding(s).
--- OUTSIDE RECORDS SUMMARY | 2024-12-21 13:07 | XMS_ITS | Clinical Summary ---
Author Organization [facility] Address [address] [place] [address] Care Team Providers Care Layout Operator Name Role Phone Bandar Maria DO Primary Care Provider +1- [phone] Allergies No known active allergies Medications fluocinonide [...] a day 4 Active vitamin B complex no.3-libal-A-bi otin 1-60-300 mg-mg-mcg tabletIndicatio ns:Vitamin Deficiency Prevention [...] (10/20/2019): Dysuria - (Added by TW Conv) Encounters Date Type Department Care Team Description 11/29/2024 Telephone [facility] Obstetrics and Gynecology [address] [facility] 7th [address] [place] [address] Adelso Mejia, APPLE Test Results from Last 3 Months Immunizations Immunization Administration Dates Next Due Influenza, Quadrivalent, Leila l Culture-based MDCK, Antibiotic Free, Intramuscular 05/27/2019 Influenza, Quadrivalent, Split, Intramuscular Influenza, Quadrivalent, Spl it, Preservative Free, Intramuscular 06/04/2018,06/05/2017 Surgical History Surgery Date Site/Laterality Comments [place] DELIVERY ONLY Section - (Added by TW Conv) ABLATION Catheter Ablation - 2008 (Added by TW Conv) LIPOSUCTION Medical [...] on file Legal Sex Female 9:40 PM WARD AIDE Gender Identity Not on file Sexual Orientation [...] Comments Blood Pressure 114/73 08/02/2024 3:36 PM WARD AIDE Pulse 70 02/23/2024 5:47 PM CDT Temperature 36.7 C (98 F) 02/23/2024 5:47 PM CDT Respiratory Rate 20 02/23/2024 5:47 PM CDT Oxygen Saturation 100% 02/23/2024 5:47 PM CDT Inhaled Oxygen Concentration - - Weight 74.3 kg (163 lb 11.2 oz) 08/02/2024 3:36 PM WARD AIDE Height 166.4 cm (5' 5.5 ) 08/02/2024 3:36 PM WARD AIDE Body Mass Index 26.83 08/02/2024 3:36 PM WARD AIDE Plan of Treatment Health Maintenance Due Date Last Done Comments Depression Screening 1982 Hepatitis C Screening 1982 DTaP/Tdap/Td Vaccine (1 - Tdap) 1993 Varicella Vaccines (1 of 2 - 13+ 2-dose series) 1995 Hepatitis B Screening 2000 Cervical Cancer Screening 10/20/2020 10/20/2019, 09/2014 Breast Cancer Screening-Mammogram 02/26/2022 02/26/2021, 11/17/2019 Influenza Vaccine (Season Ended) 2025 05/27/2019, 06/04/2018, 06/05/2017, Additional history exists Regular Well [...] REFLEX HPV 16,18/45 Routine 10/20/2019 4:47 PM WARD AIDE from Last 3 Months or Most Recently Relevant to Health Maintenance Results * SCREENING MAMMOGRAM BILATERAL W GIL (02/26/2021 11:35 AM CDT) Anatomical Region Laterality Modality Breast Bilateral Mammography Barbara Quintero NP IM MAMMO PROCEDURES Fi nal Result * ThinPrep Imaging Pap and HPV mRNA E6/E7 Reflex HPV 16,18/45 (10/20/2019 4:47 PM WARD AIDE) CLINICAL INFORMATION: Information not provided SCREENING [facility] - LMP [id number] [facility] - Previous Pap INFORMATION NOT PROVIDED [facility] - Prev. Bx INFORMATION NOT PROVIDED [facility] - SOURCE: Cervix, Endocervix [facility] - Pap, specimen adequacy Satisfactory for evaluation. Endocervical/gonzales sformation zone component absent. [facility] - HPV interp Negative for intraepithelial lesion or malignancy. [facility] - COMMENTS This Pap test has been evaluated with computer assisted technology. [facility] - Hematology Nurse Educator BEF, CT(ASCP) CT screening location: [place] [address] [place] [address] [facility] Review maintenance helper MEF, CT(ASCP) CT screening location: [place] [address] [address] [address] [facility] Comment [facility] Comment: EXPLANATORY NOTE: The Pap is [...] High Risk E6/E7 Not Detected Not Detected [facility] Comment: This test was performed using the APTIMA HPV Assay ([employer] This assay detects E6/E7 viral messenger RNA (mRNA) from 14 high-risk HPV types (16,18,31,33,35,39,45,51,52,56,58,59,66,68). The analytical performance characteristics of this assay have been determined by [employer]. The modifications have not been cleared or approved by the FDA. This assay has been validated pursuant to the CLIA regulations and is used for clinical purposes. 10/20/2019 4:47 PM WARD AIDE 10/21/2019 12:26 PM WARD AIDE Narrative [facility] - 10/25/2019 12:57 PM WARD AIDE FASTING: UNKNOWN Resulting Agency Comment Performing Organization Information: Site ID: [place] Name: [facility] Address: [address] [place] [address] Director: Sagar Calvert D.O., MPH Site ID: [place] Name: [facility] Address: [address] [place] [address] Director: Brett Bowen us Barbara Quintero NP LAB CYTOLOGY ORDERABLES Final Result [facility] [place] from Last 3 Months or Most Recently Relevant to Health Maintenance Insurance [employer] Care Teams Layout Operator Relationship Specialty Start Date End Date Bandar Maria DO PCP - General Internal Medicine 02/23/24
--- OUTSIDE RECORDS SUMMARY | 2024-12-21 13:07 | XMS_ITS ---
Author Organization [employer] [facility] [place] ([address]) Address [address] [place] [address] Care Team Providers Care Funeral Home Location Manager Name Role Phone Bandar Maria Primary Care Provider Unavailab Stacey Ledesma Unavailable [phone] Anthony Rasheed Unavailable [phone] REASON FOR VISIT Needs evaluation fo pre-vaccine [...] W/U Status Risk Notes Problem Chronic sinusitis (63591370) Other chronic sinusitis (J32.8) Active confirmed Encounters Encounter Location Date Provider Diagnosis [facility] [address] [place] [address] 11/11/2023 Anthony Wili Encounter for immu nization Z23 ; Encounter [...] Roseanna HERNÁNDEZ LDOB:[birth year] (43 yo F)Acc No.[id number]:11/11/2023 Pneumovax Patient: Roseanna AGUILLON Provider: Yaron Rasheed MD :1980 A ge:43 Y S ex:Female Date:11/11/2023 Address:[address] [place] [address] , [facility] Pcp:Bandar Maria Subjective: * Chief Complaints: * [...] * Procedure Codes: 9 0471 Single or [id number] NOC Pneumovax [id number] Ea addt'l single or combo * Follow Up: a s scheduled * Billing Information: * Visit Code: * Procedure Codes: 67488 Immunization Administration (one vaccine). 18439 NOC Pneumovax 23. 95586 NOC PedvaxHIB. 15022 Immunization Administration (each additional vaccine). * Sign off status: Completed true * Provider: Yaron Rasheed MD Date: 0 11/11/2023 Generated for Carlo cruz/Osbaldo/Larissa on: 0 12/21/2024 01:07 PM CDT
--- OUTSIDE RECORDS SUMMARY | 2024-12-21 13:07 | XMS_ITS ---
Author Organization [facility] [place] ([address]) Address [address] [place] [address] Care Team Providers Care Subcontract Manager Name Role Phone Bandar Maria Primary Care Provider Unavailab Stacey Ledesma [phone] REASON FOR VISIT ARC follow-up Encounters Encounter Location Date Provider Diagnosis [facility] [address] [place] [address] 12/15/2023 Stacey Canchola Plan Of Treatment No Information Progress Notes * Roseanna HERNÁNDEZ LDOB:[birth year] (44 yo F)Acc No.[id number]:12/15/2023 Progress Notes Patient: Roseanna AGUILLON Provider: MALATHI Mcdonald :1980 A ge:43 Y S ex:Female Date:12/15/2023 [facility] [facility] Pcp:Bandar Maria Subjective: * Chief Complaints: * 1 . ARC follow-up. * Medical History: Objective: * Vitals: Assessment: Plan: * Treatment: * Billing Information: * Visit Code: * Procedure Codes: * Electronic signature of Stacey Canchola DNP, FNP-C on 12/21/2024 at 01:07 PM CDT Sign off status: Pending * Provider: Alejandro Canchola DNP ARCHITECT-C Date: 0 12/15/2023 Generated for Carlo cruz/Osbaldo/Larissa on: 0 12/21/2024 01:07 PM CDT
--- OUTSIDE RECORDS SUMMARY | 2024-12-21 13:07 | XMS_ITS | Patient Health Record ---
Author Organization [employer] [facility] [place] ([address]) Address [address] [place] [address] Care Team Providers Care Chief Solution Architect Name Role Phone AjBandar luna Primary Care Provider Unavailab Stacey Ledesma Unavailable [phone] [facility], Provider Unavailable Unavailab le Allergies No Known Allergies Reason For Referral [...] review and pick correct strength-formulati on from [employer] options. If intended option is not shown, [...] Status Risk Notes Problem Vitamin D deficiency (39289402) Vitamin D deficiency, unspecified (E55.9) Active confirmed Problem Chronic allergic conjunctivitis (68294221) Other chronic allergic conjunctivitis (H10.45) Active confirmed Problem Allergic rhinitis caused by pollen (disorder) (24818636) Allergic rhinitis due to pollen (J30.1) Active confirmed Problem Allergic rhinitis (63930251) Other allergic rhinitis (J30.89) Active confirmed Problem Chronic sinusitis (99580607) Chronic sinusitis, unspecified (J32.9) Active confirmed Problem Allergic rhinitis caused by animal hair and dander (959022932457607) Allergic rhinitis due to animal (cat) (dog) hair and dander (J30.81) Active confirmed Problem Chronic sinusitis (05324790) Other chronic sinusitis (J32.8) Active confirmed Encounters Encounter Location Date Provider Diagnosis [facility] [address] [place] [address] 02/14/2024 Provider [facility] Plan Of Treatment Pending Test Test Name Order Date STREPTOCOCCUS PNEUMONIAE IGG AB (23 SERO TYPES) 10/27/2023 HAEMOPHILUS INFLUENZAE B ANTIBODY, IGG 0 10/27/2023 Insurance Providers Payer Name Payer Address Payer Phone Subscriber Number Group Number Insured Name Patient Relationship to Insured Coverage Start Date Coverage End Date [facility] [id number] [place] [address] [phone] [id number] Roseanna Benoit Self - patient is the insured 3 Medical (General) History Medical History History ICD Code Anxiety disorder Depression, unspecified F32.A depression Surgical History Surgery Date(Month/Year) C section 04/21/2009 c section 06/19/2012 heart ablation 2007 heart ablation 2009
--- OUTSIDE RECORDS SUMMARY | 2024-12-21 13:07 | XMS_ITS | Clinical Summary ---
Author Organization [facility] Address [address] [place] [address] Care Team Providers Care Clinical Documentation Nurse Name Role Phone Unavailable Primary Care Provider Unavailabl e Source Comments [facility],non-owned Affiliates and Associated Physician Practices is amultiple site organization consisting of ambulatory clinics and hospital sitesin [place], [place], [place] and [place]. This disclosure is being madepursuant to the Care Everywhere program and may not contain all information available regarding this patient. Last updated 18.[facility] Allergies No known active allergies Medications * Be aware that medications may not be up to date on this document. Alwaysverify current medications with the patient. citalopram (CELEXA) 10 MG tablet Take 10 mg by mouth once daily 12/24/2016 Active Active Problems Problem Noted Date Diagnosed Date Anxiety 12/25/2016 Palpitations 12/25/2016 SVT (supraventricular tachycardia) 12/25/2016 Social History Tobacco Use Types Packs/Day Years Used Date Smoking Tobacco: Never Comments Unknown Sex and Gender Information Value Date Recorded Sex Assigned at Not on file Legal Sex Female 4:04 PM CDT Gender Identity Not on file Sexual Orientation [...] Done Comments LIPID TESTING 1982 MAMMOGRAM 1982 HIV SCREENING 1997 HEPATITIS C SCREENING 03/31/2000 DTAP/TDAP/TD VACCINES (1 - Tdap) 2001 HEPATITIS B VACCINE (1 of 3 - 19+ 3-dose series) 2001 COVID-19 VACCINE (1 - 2023-2 5 season) 2024 DEPRESSION SCREENING 09/01/2024 INFLUENZA VACCINE (Season Ended) 2025 ZOSTER VACCINE (1 of 2) 2032 HIB VACCINE Aged Out No longer eligi ble based on patient's age to complete this topic HPV VACCINE Aged Out No longer eligi ble based on patient's age to complete this topic MENINGOCOCCAL (Group B) VACC INE SHARED DECISION-MAKING Aged Out No longer eligibl e based on patient's age to complete this topic MENINGOCOCCAL GROUPS A/C/Y/W VACCINE Aged Out No longer eligible b ased on patient's age to complete this topic PNEUMOCOCCAL VACCINE Aged Out No long er eligible based on patient's age to complete this topic [facility]
--- OUTSIDE RECORDS SUMMARY | 2024-12-21 13:07 | XMS_ITS | Referral Summary ---
Author Organization [facility] Address [address] [place] [address] Care Team Providers Care Finish Machine Tender Name Role Phone Bandar Maria DO Primary Care Provider +1- [phone] Encounters Date Type Department Care Team Description 11/29/2024 Telephone [facility] Obstetrics and Gynecology [address] [facility] 7th [address] [place] [address] Adelso Mejia RN Test Results from Last 3 Months Allergies No known active allergies Medications fluocinonide [...] a day 4 Active vitamin B complex no.2-ixkfb-C-bi otin 1-60-300 mg-mg-mcg tabletIndicatio ns:Vitamin Deficiency Prevention [...] on file Legal Sex Female 9:40 PM MAINTENANCE INSTRUCTOR Gender Identity Not on file Sexual Orientation Not on file Last Filed Vital Signs Vital Sign Reading Time Taken Comments Blood Pressure 114/73 08/02/2024 3:36 PM MAINTENANCE INSTRUCTOR Pulse 70 02/23/2024 5:47 PM CDT Temperature 36.7 C (98 F) 02/23/2024 5:47 PM CDT Respiratory Rate 20 02/23/2024 5:47 PM CDT Oxygen Saturation 100% 02/23/2024 5:47 PM CDT Inhaled Oxygen Concentration - - Weight 74.3 kg (163 lb 11.2 oz) 08/02/2024 3:36 PM MAINTENANCE INSTRUCTOR Height 166.4 cm (5' 5.5 ) 08/02/2024 3:36 PM MAINTENANCE INSTRUCTOR Body Mass Index 26.83 08/02/2024 3:36 PM MAINTENANCE INSTRUCTOR Plan of Treatment Not on file Procedures Procedure Name Priority Date/Time Associated Diagnosis Comments SCREENING MAMMOGRAM BILATERAL W GIL Schedule Routine, Read Routine (OP Routine) 02/26/2021 11:35 AM CDT Encounter for screening mammogram for malignant neoplasm of breast Family history of breast cancer THINPREP IMAGING PAP AND HPV MRNA E6/E7 REFLEX HPV 16,18/45 Routine 10/20/2019 4:47 PM MAINTENANCE INSTRUCTOR from Last 3 Months or Most Recently Relevant to Health Maintenance Results * SCREENING MAMMOGRAM BILATERAL W GIL (02/26/2021 11:35 AM CDT) Anatomical Region Laterality Modality Breast Bilateral Mammography Barbara Quintero DIRECTOR CHILD IMG MAMMO PROCEDURES Fi nal Result * ThinPrep Imaging Pap and HPV mRNA E6/E7 Reflex HPV 16,18/45 (10/20/2019 4:47 PM MAINTENANCE INSTRUCTOR) CLINICAL INFORMATION: Information not provided SCREENING [facility] - [place] LMP [id number] [facility] - [place] Previous Pap INFORMATION NOT PROVIDED [facility] - [place] Prev. Bx INFORMATION NOT PROVIDED [facility] - [place] SOURCE: Cervix, Endocervix [facility] - [place] Pap, specimen adequacy Satisfactory for evaluation. Endocervical/gonzales sformation zone component absent. [facility] - [place] HPV interp Negative for intraepithelial lesion or malignancy. [facility] - COMMENTS This Pap test has been evaluated with computer assisted technology. [facility] Manager Foreign BEF, CT(ASCP) CT screening location: [place] [address] [place] [address] [facility] Review agricultural crop farm manager MEF, CT(ASCP) CT screening location: [place] [address] [place] [address] [facility] Comment [facility] Comment: EXPLANATORY NOTE: The Pap is a [...] High Risk E6/E7 Not Detected Not Detected [facility] Comment: This test was performed using the APTIMA HPV Assay ([employer] This assay detects E6/E7 viral messenger RNA (mRNA) from 14 high-risk HPV types (16,18,31,33,35,39,45,51,52,56,58,59,66,68). The analytical performance characteristics of this assay have been determined by [email or web address]. The modifications have not been cleared or approved by the FDA. This assay has been validated pursuant to the CLIA regulations and is used for clinical purposes. 10/20/2019 4:47 PM MAINTENANCE INSTRUCTOR 10/21/2019 12:26 PM MAINTENANCE INSTRUCTOR Narrative [facility] - 10/25/2019 12:57 PM MAINTENANCE INSTRUCTOR FASTING: UNKNOWN Resulting Agency Comment Performing Organization Information: Site ID: [place] Name: [email or web address] Address: [address] [place] [address] Director: Sagar Cavlert D.O., MPH Site ID: [email or web address] [email or web address] Address: [address] [place] [address] Director: Brett Bowen us Barbara Quintero NP LAB CYTOLOGY ORDERABLES Final Result [facility] [address] [place] [facility] [place] from Last 3 Months or Most Recently Relevant to Health Maintenance Insurance [employer] [place] Care Teams Finish Machine Tender Relationship Specialty Start Date End Date Bandar Maria DO PCP - General Internal Medicine 02/23/24
--- OUTSIDE RECORDS SUMMARY | 2024-12-21 13:07 | XMS_ITS ---
Author Organization [employer] [place] ([address]) Address [address] [place] [address] Care Team Providers Care Lumber Chain Offbearer Name Role Phone Bandar Maria Primary Care Provider Unavailab Stacey Ledesma Unavailable [phone] [facility], Provider Unavailable Unavailab le REASON FOR VISIT [facility] Encounter Medications Medication SIG (Take, Route, [...] review and pick correct strength-formulati on from [employer] options. If intended option is not shown, discontinue and re-order from Quick Search* Active Encounters Encounter [facility] Date [facility] [place] [address] 02/14/2024 Provider VANDANA-Guillermo Plan Of Treatment No Information Progress Notes * Roseanna HERNÁNDEZ LDOB:[birth year] (44 yo F)Acc No.[id number]:02/14/2024 Patient: Roseanna AGUILLON Provider: Yaron Li :1980 A ge:43 Y S ex:Female Date:02/14/2024 Address:[facility] [address] [facility] [facility] Pcp:Bandar Maria Subjective: * Chief Complaints: * 1 . Multum To [facility] Conversion Encounter. * Medical History: * Medications: T aking Zaditor 0.025% SOLUTION 1 GTT IN EACH AFFECTED EYE EVERY 8 HOURS , Notes to Pharmacist: *Please review and pick correct strength-formulation from [facility] options. If intended option is not [...] * Procedure Codes: * Electronic signature of Edilia barbozar [facility] on 12/21/2024 at 01:07 PM CDT Sign off status: Pending * Provider: Yaron Li Date: 02/14/2024 Generated for Carlo cruz/Osbaldo/Larissa on: 12/21/2024 01:07 PM CDT
== END 2024-12-21 11:18 | disposition home or self-care (01) ==
PROVIDERS: PCP Internal Medicine
DX: N63.21 Unspecified lump in the left breast, upper outer quadrant (principal)
CPT/HCPCS: 76642; 77061; 77065; G0279

== ENCOUNTER 2025-04-24 12:54 | Emergency (ER) | payer BC, SELFPAY ==
[2025-04-24 13:21] VITALS: BP 123/76; PULSE 78; RESP 16; TEMP 36.8; O2SAT 100
[2025-04-24 13:55] LABS: EDCOVIDSCREEN Negative (Negative); EDINFLUASCREEN Negative (Negative); EDINFLUBSCREEN Negative (Negative)
--- NOTE | 2025-04-24 15:05 | ED_ITS ---
HPI - General Adult General Chief complaint: Headache Stated complaint: HEADACHE Source: patient Mode of arrival: ambulatory Limitations: no limitations History of Present Illness HPI narrative: Patient presents for evaluation of a headache for the last 10 days. She has a history of migraines but current headache is not consistent with normal migraine pattern. Her migraines are often in the right retro-orbital region. She describes that pain is aching and she typically has associated photophobia. The headache of concern was in the bilateral parietal and frontal regions. She describes that pain as squeezing. She is under the care of neurology and has been titrating up on her migraine prophylaxis medications without much improvement. She tried taking rizatriptan without improvement. She state she has experienced some body aches, tinnitus and discomfort in her neck. Her son has been sick with respiratory symptoms. She saw her PCP three days ago for her symptoms. She states she was given samples of a migraine medication. She tried the medication and it was ineffective. She took advil cold and sinus and what sounds to be sudafed. These were the only things that helped her symptoms. She states the headache has resolved but she still has body aches, chills and is overall not feeling well. Related Data Home Medications ?Medication ?Instructions ?Recorded ?Confirmed ?Last Taken ?Type loratadine 10 mg tablet (Claritin) 10 mg PO DAILY PRN 11/13/20 11/22/24 Unknown History spironolactone 100 mg tablet mg 04/24/25 Unknown Hist ory Allergies Allergy/AdvReac Type Severity Reaction Status Date / Time No Known Allergies Allergy Mild Verified 04/24/25 13:02 Review of Systems Review of Systems: CONSTITUTIONAL: Reports chills. Denies fever or sweats. EYES: Denies visual changes, redness, or discharge. ENT:Reports neck pain and tinnitus. Denies rhinorrhea, congestion, sore throat, or otalgia. CARDIOVASCULAR: Denies chest pain, palpitations, or edema. RESPIRATORY: Denies cough or dyspnea. GASTROINTESTINAL: Denies abdominal pain, nausea, vomiting, or diarrhea. GENITOURINARY: Denies dysuria or hematuria. SKIN: Denies rash or itching. MUSCULOSKELETAL: Reports generalized body aches NEUROLOGIC: Reports recent headache, but none currently. Denies numbness, dizziness, or weakness. PSYCHIATRIC: Denies anxiety or depression. [facility] Past Medical History Medical History Episodic migraine Close exposure to COVID-19 virus Low back pain SVT (supraventricular tachycardia) Anxiety Allergies Visual disturbance Surgical History Surgical History H/O section X2 Family History Family History Grandparent Family history of coronary artery disease Mother Family history of malignant neoplasm of breast in first degree relative Heart disease Father Hypertension Sibling Depression Anxiety Social History Social History Smoking status: Never smoker Alcohol intake: current Do You Feel Safe in your Home?: Yes Lack of Transportation: No Lack of Food: Never True Current Housing: I Have Housing Concerned About Future Housing: No Difficulty Paying Gas/Electric Bills: No Difficulty Paying for Meds: No Currently Unemployed: No Education: Associate Degree Difficulty w/ Childcare or Family Care: No Exam Narrative: GENERAL: Well-appearing, well-nourished, and in no acute distress. HEAD: Normocephalic, atraumatic. EYES: PERRLA and EOMI. ENT: Nares clear, no rhinorrhea or epistaxis. Mucous membranes moist. Oropharynx without tonsillar hypertrophy exudate or other lesions. Bilateral TMs pearly min nonbulging NECK: Supple. No adenopathy or masses. No carotid bruits or JVD CHEST: Clear to auscultation. No respiratory distress. No wheezes rales or rhonchi HEART: Regular rate and rhythm. No murmur heard. Normal peripheral pulses. ABDOMEN: Soft, nontender, nondistended, normal active bowel sounds. EXTREMITIES: Normal range of motion. No edema. SKIN: Warm, dry, no rash. NEURO: Normal finger to nose exam. Able to perform rapid alternating movements without difficulty. No focal deficits. Alert and oriented x3. PSYCH: Normal mood and affect. Course Course Emergency Course: This is a 45-year-old female who presented today with primary concerns for headache which is dissimilar to her migraine pattern. With that said her current headache is resolved. She is frustrated by persistence of her symptoms. The fact that she was not responding to typical migraine medication in her headaches were dissimilar suggest that her headache was not an actual migraine. She also does not have any photophobia / phonophobia or nausea that often accompany migraines. given the fact that she was responding to Advil cold and Sinus and Sudafed, this seems to suggest sinus etiology. While she does not have any nasal drainage, her frontal presentation seems to suggest her headache is sinus in origin. she may benefit from imaging but she and I agreed that it did not need to be performed on an emergent basis as she has had symptoms for last 10 days. furthermore, she is neurologically intact on exam. She plans a follow-up with her neurologist to determine whether they can order imaging studies for her. We did COVID and flu testing today which were both negative. We opted to proceed with antibiotic therapy, steroids and Fioricet and she will call her neurologist and PCP for follow up. She will go to the ER for worsening symptoms. Pt in agreement with plan of care. Level of Care: Express Care Visit Vital Signs Vital signs: Vital Signs Temperature 36.8 C 04/24/25 13:21 Pulse Rate 78 04/24/25 13:21 Respiratory Rate 16 04/24/25 13:21 Blood Pressure 123/76 04/24/25 13:21 Pulse Oximetry 100 04/24/25 13:21 Temperature 36.8 C 04/24/25 13:21 Pulse Rate 78 04/24/25 13:21 Respiratory Rate 16 04/24/25 13:21 Blood Pressure 123/76 04/24/25 13:21 Pulse Oximetry 100 04/24/25 13:21 Medical Decision Making Vital Signs Vital Signs: Vital Signs Temperature 36.8 C 04/24/25 13:21 Pulse Rate 78 04/24/25 13:21 Respiratory Rate 16 04/24/25 13:21 Blood Pressure 123/76 04/24/25 13:21 Pulse Oximetry 100 04/24/25 13:21 Temperature 36.8 C 04/24/25 13:21 Pulse Rate 78 04/24/25 13:21 Respiratory Rate 16 04/24/25 13:21 Blood Pressure 123/76 04/24/25 13:21 Pulse Oximetry 100 04/24/25 13:21 Lab Data Labs: Lab Results 04/24/25 Range/Units 13:10 POC Influenza A Ag Negative (Negative) POC Influenza B Ag Negative (Negative) POC SARS CoV-2 Ag Negative (Negative) Discharge Plan Discharge Clinical Impression: Headache, Sinusitis Patient Disposition: Home Condition: Stable Instructions: Antibiotic Form, Sinusitis (ED), Acute Headache (DC) Patient Language: Georgian Prescriptions: New methylprednisolone [Medrol (Boy)] 4 mg tablets,dose pack See Rx Instructions .ROUTE .COMPLEX Qty: 21 0RF Rx Instructions: for 6 days amoxicillin-pot clavulanate 875-125 mg tablet 1 tablet PO Q12H Qty: 20 0RF [id number] [Fioricet] 50-300-40 mg capsule 1 cap PO Q8H PRN (Reason: pain) Qty: 12 0RF No Action spironolactone 100 mg tablet loratadine [Claritin] 10 mg tablet 10 mg PO DAILY PRN zonisamide 100 mg capsule 300 mg PO . bedtime Qty: 300 1RF Rx Instructions: Increase the dose to 225 mg for 1 week then 250 mg for 1 week and then 275 mg for 1 week and then continue the 300 mg at bedtime zonisamide 25 mg capsule 25 mg PO DAILY Qty: 90 0RF Rx Instructions: to be used with the zonisamide 200 mg for titration increase to 225 for 1 week then 250 for 1 week then to 75 for 1 week and then 300 mg a day. rizatriptan [Maxalt-[employer]] 10 mg tablet,disintegrating See Rx Instructions PO .COMPLEX Qty: 14 5RF Rx Instructions: take 1 tab at onset of headache; if no relief may repeat 1 tab after at least 2 hrs; max = 3 tabs/24 hr PO meloxicam 7.5 mg tablet 7.5 mg PO DAILY Qty: 60 1RF Rx Instructions: take 1 tablet with rizatriptan at the onset of headache for better results Aimovig Autoinjector 70 mg/mL auto-injector 70 mg subcut MONTHLY Qty: 1 0RF bupropion HCl [Wellbutrin XL] 150 mg tablet extended release 24 hr 150 mg PO QAM Qty: 90 1RF Follow-up/Referrals: Ritu Kathleen BRUSHER HAND [Primary Care Provider, Internal Medicine] Time of Disposition: 14:37
== END 2025-04-24 14:39 | disposition home or self-care (01) ==
PROVIDERS: Emergency Provider Nurse Practitioner; PCP Nurse Practitioner
DX: R51.9 Headache, unspecified (principal); J32.9 Chronic sinusitis, unspecified; F41.9 Anxiety disorder, unspecified; Z20.822 Contact with and (suspected) exposure to COVID-19
CPT/HCPCS: 87426; 87804; 99213; G0463